=== PATIENT | female | born 1980 ===

== ENCOUNTER 2018-03-16 10:45 | Inpatient (IN) | payer OTHER ==
[~2018-03-16] VITALS: Ht 157.5 cm; Wt 72.6 kg
[2018-03-16] MEDS ORDERED: ATIVAN0.5 M1 PO (13:12)
[2018-03-16] MEDS ORDERED: DICY20TA PO (13:13)
[2018-03-16] MEDS ORDERED: ZANTAC150 M3 PO (13:13)
[2018-03-16] MEDS ORDERED: LASIX20 MG PO (13:13)
[2018-03-16] MEDS ORDERED: TRAZODONE HCL100 MG PO (13:14)
[2018-03-16] MEDS ORDERED: PROZAC40 MG PO (13:14)
== END 2018-03-23 16:42 | disposition home or self-care (01) | DRG 743 ==
LOC: ADM 10:45 → CIR.AMB 03-20 07:00 → EDSTATUS 03-20 10:45 → CIR.AMB 03-20 10:45 → OB/GYN 03-20 18:06 → O/R 03-20 18:06 → OB/GYN 03-20 18:08
PROVIDERS: Obstetrics & Gynecology; Urology; ADMIT Obstetrics & Gynecology
PROC: 0WHR8YZ Insertion of Other Device into Genitourinary Tract, Via Natural or Artificial Opening Endoscopic (ICD-10-PCS; 2018-03-20)
PROC: 0UT70ZZ Resection of Bilateral Fallopian Tubes, Open Approach (ICD-10-PCS; principal; 2018-03-20 07:00)
PROC: 0UT10ZZ Resection of Left Ovary, Open Approach (ICD-10-PCS; 2018-03-20 07:00)
DX: N80.1 Endometriosis of ovary (principal); N83.8 Other noninflammatory disorders of ovary, fallopian tube and broad ligament; N73.6 Female pelvic peritoneal adhesions (postinfective)

== ENCOUNTER 2019-03-23 13:34 | Emergency (ER) | payer OTHER ==
[~2019-03-23] VITALS: Ht 154.9 cm; Wt 63.0 kg
[~2019-03-23 13:34] MED LIST: ATIVAN0.5 M1 PO; DICY20TA PO; LASIX20 MG PO; PROZAC40 MG PO; TRAZODONE HCL100 MG PO; ZANTAC150 M3 PO
== END 2019-03-23 18:10 | disposition home or self-care (01) ==
LOC: ER 13:34
DX: R10.2 Pelvic and perineal pain (principal)